=== PATIENT | male | born 1985 | race Hispanic/Latino ===

== ENCOUNTER 2020-05-28 22:26 | Emergency (ER) | payer SELFPAY ==
[2020-05-28 23:14] VITALS: BP 115/79
[2020-05-28] MEDS ORDERED: ASPIRIN 325 MG TAB PO ONE (23:19)
== END 2020-05-28 23:30 | disposition left against medical advice (07) ==
LOC: ED 22:26
DX: R07.89 Other chest pain (principal); Z53.21 Procedure and treatment not carried out due to patient leaving prior to being seen by health care provider
CPT/HCPCS: 93005